=== PATIENT | male | born 1990 | race Caucasian/White ===

== ENCOUNTER 2022-11-30 10:48 | Emergency (ER) | payer MEDICAID ==
[~2022-11-30] VITALS: Ht 175.3 cm; Wt 83.9 kg
[2022-11-30 11:07] VITALS: BP 145/70
[2022-11-30] MEDS ORDERED: KETOROLAC 30 MG/ML VIAL IM ONE (11:20)
--- NOTE | 2022-11-30 11:22 | NUR ---
PT C/O BILATERAL KNEE, ANKLE, ARM PAIN X [address] AGUIRRE AT BEDSIDE. MSE COMPLETED. NAD.
[2022-11-30 11:35] LABS: BASOPHILS % (AUTO) 0.6 % (0.0-2.0); EOSINOPHILS # (AUTO) 0.1 K/uL (0-0.4); EOSINOPHILS % (AUTO) 1.2 % (0.0-4.0); HEMOGLOBIN 14.7 g/dL (12.0-18.0); LYMPHOCYTES # (AUTO) 1.6 K/uL (2.0-11.5); LYMPHOCYTES % (AUTO) 23.1 % (20.5-51.1); MEAN CORPUSCULAR HEMOGLOBIN 29 pg (27-31); MEAN CORPUSCULAR HGB CONC 34 g/dL (33-37); MEAN CORPUSCULAR VOLUME 84.7 fL (80-94); MONOCYTES # (AUTO) 0.9 K/uL (0.8-1.0); MONOCYTES % (AUTO) 12.8 % (1.7-9.3); NEUTROPHILS # (AUTO) 4.3 K/uL (1.8-7.7); NEUTROPHILS % (AUTO) 62.3 % (42.2-75.2); PLATELET COUNT (AUTO) 267 K/uL (140-450); RED BLOOD CELL COUNT(AUTO) 5.07 MIL/uL (4.20-6.10); RED CELL DISTRIBUTION WIDTH 13.2 % (11.6-13.7)
[2022-11-30 11:53] LABS: ALBUMIN 3.6 g/dL (3.4-5.0); ANION GAP 11.3 (8-16); CARBON DIOXIDE 25.8 mmol/L (21-32); CREATININE 0.9 mg/dL (0.6-1.3); POTASSIUM 4.1 mmol/L (3.5-5.1); TOTAL BILIRUBIN 0.4 mg/dL (0.0-1.0)
[2022-11-30 12:11] LABS: APPEARANCE,URINE CLEAR (CLEAR); BILIRUBIN,URINE NEGATIVE (NEGATIVE); BLOOD, URINE NEGATIVE (NEGATIVE); COLOR,URINE YELLOW (YELLOW); LEUKOCYTE ESTERASE ,URINE NEGATIVE (NEGATIVE); NITRITE, URINE NEGATIVE (NEGATIVE); PH,URINE 6.5 (5.0-9.0); UGLUCOSE NEGATIVE (NEGATIVE)
--- NOTE | 2022-11-30 13:33 | NUR ---
US AT BEDSIDE.
[2022-11-30 15:14] VITALS: BP 118/70
--- NOTE | 2022-11-30 15:14 | NUR ---
Patient discharged with v/s stable. Written and verbal after care instructions given and explained. Patient verbalized understanding. Ambulatory with steady gait. All questions addressed prior to discharge. Advised to follow up with PMD.
== END 2022-11-30 15:14 | disposition home or self-care (01) ==
LOC: EDSEX 10:48 → MED 10:48
DX: M25.562 Pain in left knee (principal); M25.561 Pain in right knee; M79.10 Myalgia, unspecified site; R74.8 Abnormal levels of other serum enzymes
CPT/HCPCS: 36415; 73562; 76705; 80053; 81003; 85025; 85651; 86140; 96372; 99285; J1885; Q0092